=== PATIENT | female | born 1990 | race Caucasian/White ===

== ENCOUNTER 2019-06-11 21:29 | Emergency (ER) | payer MEDICAID ==
[~2019-06-11] VITALS: Ht 154.9 cm; Wt 70.8 kg
[2019-06-11 21:32] VITALS: BP 124/90
--- NOTE | 2019-06-11 21:35 | NUR ---
TO LOBBY A/W BED AMBULATORY
--- NOTE | 2019-06-11 21:42 | NUR ---
PT AMBUALTED TO ER BED 06
--- NOTE | 2019-06-11 21:45 | NUR ---
pt arrived to ed c/o vag pain x 3 weeks. pt states the pain got worse today. describes it as cramping pressure feeling. pt states it looks like her uterus and a string appearance is popping out of her vagina. pt does have pmh of miscarriages. pt denies any bleeding or spotting. pt states this is her 5th preg, has given 2 births, 1 miscarriage, 1 . vss. nka denies any pmh.
--- NOTE | 2019-06-11 22:06 | NUR ---
urine collected and sent to lab.
--- NOTE | 2019-06-11 22:09 | NUR ---
us at bedside.
[2019-06-11 22:22] LABS: APPEARANCE,URINE CLEAR (CLEAR); BILIRUBIN,URINE NEGATIVE (NEGATIVE); BLOOD, URINE 2+ (NEGATIVE); COLOR,URINE YELLOW (YELLOW); LEUKOCYTE ESTERASE ,URINE NEGATIVE (NEGATIVE); NITRITE, URINE NEGATIVE (NEGATIVE); UGLUCOSE NEGATIVE (NEGATIVE)
[2019-06-11 22:56] LABS: BASOPHILS % (AUTO) 0.3 % (0.0-2.0); EOSINOPHILS # (AUTO) 0.1 K/uL (0-0.4); EOSINOPHILS % (AUTO) 0.9 % (0.0-4.0); HEMATOCRIT 38.6 % (36-48); HEMOGLOBIN 12.9 g/dL (12.0-16.0); LYMPHOCYTES # (AUTO) 2.5 K/uL (2.5-16.5); LYMPHOCYTES % (AUTO) 24.1 % (20.5-51.1); MEAN CORPUSCULAR HEMOGLOBIN 30 pg (27-31); MEAN CORPUSCULAR HGB CONC 33 g/dL (33-37); MEAN CORPUSCULAR VOLUME 90.5 fL (80-94); MONOCYTES # (AUTO) 0.6 K/uL (0.8-1.0); MONOCYTES % (AUTO) 5.7 % (1.7-9.3); NEUTROPHILS # (AUTO) 7.3 K/uL (1.8-7.7); PLATELET COUNT (AUTO) 321 K/uL (140-450); RED BLOOD CELL COUNT(AUTO) 4.26 MIL/uL (4.20-5.40); RED CELL DISTRIBUTION WIDTH 13.4 % (11.6-13.7); WHITE BLOOD COUNT (AUTO) 10.5 K/uL (4.8-10.8)
[2019-06-11 23:06] LABS: CARBON DIOXIDE 25.8 mmol/L (21-32); CREATININE 0.5 mg/dL (0.6-1.3); POTASSIUM 3.8 mmol/L (3.5-5.1)
--- NOTE | 2019-06-11 23:07 | NUR ---
called us for results. said pt on [address]th [address] on the list and is still waiting to be read.
--- NOTE | 2019-06-11 23:12 | NUR ---
md at bedside giving update for the pt results and eval.
--- NOTE | 2019-06-11 23:25 | NUR ---
at bedside performing a visual inspection of the vagina. vamsi emt at bedside.
[2019-06-12 00:34] VITALS: BP 110/58
== END 2019-06-12 00:30 | disposition home or self-care (01) ==
LOC: MED 21:29
DX: O23.40 Unspecified infection of urinary tract in pregnancy, unspecified trimester (principal); Z3A.08 8 weeks gestation of pregnancy
CPT/HCPCS: 36415; 76801; 80048; 81001; 84702; 85025; 86900; 86901; 87086; 99284; Q0092; 99283